=== PATIENT | female | born 1990 | race Caucasian/White ===

== ENCOUNTER 2016-11-24 11:58 | Emergency (ER) | payer OTHER ==
[2016-11-24 12:12] VITALS: BP 119/68
--- NOTE | 2016-11-24 12:21 | UC ---
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 Patient states she felt she "threw out her back" and the pain/soreness began about one hour after the incident and has progressively been getting worse since. She tried taking 800mg of ibuprofen last night but states she did not have much relief. She did have some relief after using a heating pad yesterday. Certain positions make the pain worse but the pain is constant aching and throbbing. Intermittent sharp pain with movement. Did not fall, is able to bear weight and walk. Denies numbness/tingling, saddle anesthesia and bladder/bowel incontinence. - History of Current Complaint Chief Complaint: UCBackPain Stated Complaint: BACK INJURY WC Time Seen by Provider: 11/24/16 12:08 Hx Obtained From: Patient Hx Last Menstrual Period: 9 days ago ?: No Onset/Duration: Sudden Onset Timing: Constant Severity Initially: Mild Severity Currently: Moderate Pain Intensity: 8 Pain Scale Used: 0-10 Numeric Back Pain: Is Diffuse - b/l lower/mid back Character: Sharp - intermittently, Aching, Throbbing Aggravating: Movement, Lifting, Bending Alleviating: Rest, Position, Heat Associated Signs And Symptoms: Positive: Negative. Negative: Swelling, Redness , Bruising, Tingling, Bladder Incontinence, Bowel Incontinence, Weight Loss - Allergies/Home Medications Allergies/Adverse Reactions: Allergies Allergy/AdvReac Type Severity Reaction Status Date / Time No Known Allergies Allergy Verified 11/24/16 12:13 Home Medications: Home Medications Ibuprofen TAB* [Motrin TAB* 800 MG] 800 mg PO ONCE PRN 11/24/16 [History Confirmed 11/24/16] PMH/Surg Hx/FS Hx/Imm Hx Endocrine History Of: Denies: Diabetes Cardiovascular History Of: Denies: Hypertension Respiratory History Of: Denies: Asthma - Surgical History Surgical History: None - Family History Known Family History: Positive: Cardiac Disease - Social History Alcohol Use: Occasionally Substance Use Type: None Smoking Status (MU): Never Smoked Tobacco Review of Systems Constitutional: Negative Skin: Negative Respiratory: Negative Cardiovascular: Negative Gastrointestinal: Negative Motor: Negative Neurovascular: Negative Musculoskeletal: Arthralgia, Myalgia Neurological: Negative Psychological: Negative All Other Systems Reviewed And Are Negative: Yes Physical Exam Triage Information Reviewed: Yes Appearance: Well-Appearing - sitting comfortably on stretcher, No Pain Distress , Well-Nourished Vital Signs: Initial Vital Signs Temp 98.3 F 11/24/16 12:04 Pulse 86 11/24/16 12:04 Resp 18 11/24/16 12:04 BP 119/68 11/24/16 12:04 Vital Signs Reviewed: Yes Eyes: Positive: Conjunctiva Clear ENT: Positive: Hearing grossly normal Neck: Positive: Supple, Nontender Respiratory: Positive: Chest non-tender, Lungs clear, Normal breath sounds, No respiratory distress Cardiovascular: Positive: RRR, No Murmur, Pulses Normal, Brisk Capillary Refill - < 2 seconds Abdomen Description: Positive: Nontender Musculoskeletal: Positive: Strength Intact - back flexion/extension and twisting however causes pain. b/l lower extremities normal strength and ROM. sensation and skin intact., ROM Intact, No Edema - no ecchymosis, obvious deformity or step-off Neurological Exam: Normal Neurological: Positive: Alert Psychological Exam: Normal Skin Exam: Normal Back Pain Course/Dx - Course Course Of Treatment: given ibuprofen while in office, continue at home with trial of muscle relaxer and heating pad. follow up with primary care - Differential Dx/Diagnosis Differential Diagnosis/HQI/PQRI: Herniated Disc, Strain, Sprain Provider Diagnoses: Thoracic back strain, Low back strain Discharge - Discharge Plan Condition: Stable Disposition: HOME Prescriptions: Cyclobenzaprine TAB* [Flexeril TAB*] 10 mg PO DAILY PRN #5 tab PRN Reason: Spasms Ibuprofen TAB* [Motrin TAB* 800 MG] 800 mg PO Q6H #20 tab Patient Education Materials: Lower Back Exercises (ED), Low Back Strain (ED), Thoracic Back Strain (ED) Forms: *Work Release Additional Instructions: Take Ibuprofen every 6 hours for the next 5 days or until symptoms persist with food. Take muscle relaxer once before bed for the next [address] taking this medication as it does make you drowsy. Use heating pad on area causing pain multiple times daily. Be careful not to fall asleep with it on and do not burn yourself. When symptoms have improved trying strengthening your back muscles to prevent future injury. Refrain from physical activity and lifting until your symptoms have improved. Follow-up with primary care provider to ensure symptoms are improving and for further evaluation if symptoms worsen or persist.
[2016-11-24] MEDS ORDERED: Ibuprofen TAB* 400 MG PO ONE (12:37)
== END 2016-11-24 12:54 | disposition home or self-care (01) ==
LOC: MERGE 11:58 → UCCORT 11:58
DX: S29.012A Strain of muscle and tendon of back wall of thorax, initial encounter (principal); S39.012A Strain of muscle, fascia and tendon of lower back, initial encounter; X50.0XXA Overexertion from strenuous movement or load, initial encounter; Y93.F9 Activity, other caregiving; Y92.9 Unspecified place or not applicable; Y99.0 Civilian activity done for income or pay
CPT/HCPCS: 99202; A9270-GY; G0463